=== PATIENT | male | born 1970 | race American Indian/Alaskan Native ===

== ENCOUNTER 2016-11-19 22:23 | Inpatient (IN) | payer OTHER ==
[2016-11-19] MEDS ORDERED: ZOFRAN ONE (22:55)
[2016-11-19] MEDS ORDERED: DILAUDID IV ONE ×2 (22:55→23:49)
[2016-11-19] MEDS ORDERED: ZOFRAN IV ONE (22:55)
[2016-11-19] MEDS ORDERED: ceFAZolin 2 GM in NACL 0.9% 100 ML IV ONE (22:57)
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
[2016-11-19 23:49] LABS: Basophils % (Auto) 0.8 % (0.0-1.8); Eosinophils % (Auto) 1.1 % (0.0-4.3); Hematocrit 42.9 % (35.5-45.6); Hemoglobin 14.1 gm/dl (11.8-15.2); Mean Corpuscular HGB Conc 33 % (32-34); Mean Corpuscular Hemoglobin 29 pg (28-32); Mean Corpuscular Volume 88 fl (84-94); Platelet Count 170 K/mm3 (140-440); Red Blood Count 4.89 M/mm3 (3.65-5.03); White Blood Count 8.6 K/mm3 (4.5-11.0)
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
[2016-11-19 23:58] LABS: INR 0.99 (0.87-1.13)
[2016-11-19 23:59] LABS: Partial Thromboplastin Time 26.4 Sec. (24.2-36.6)
[2016-11-20 00:07] LABS: Alanine Aminotransferase 23 units/L (7-56); Albumin 4.7 g/dL (3.9-5); Albumin/Globulin Ratio 1.6 %; Alkaline Phosphatase 61 units/L (35-129); Anion Gap 23 mmol/L; Blood Urea Nitrogen 14 mg/dL (9-20); Calcium 9.7 mg/dL (8.4-10.2); Carbon Dioxide 22 mmol/L (22-30); Chloride 101.6 mmol/L (98-107); Glucose 108 mg/dL (75-100); Potassium 3.6 mmol/L (3.6-5.0); Sodium 143 mmol/L (137-145); Total Protein 7.7 g/dL (6.3-8.2)
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
[2016-11-20] MEDS ORDERED: DILAUDID IV ONE (02:01)
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
--- NOTE | 2016-11-20 03:26 | Admit Criteria Form ---
Admission Criteria Documentation: MUSCULOSKELETAL DISEASE GRG Clinical Indications for Admission to Inpatient Care (Place 'X' for any and all applicable criteria): Hospital admission is needed for appropriate care of the patient because of 1 or more of the following: [X ]I. Fracture, dislocation, or other musculoskeletal injury requiring inpatient care(medical) as indicated by 1 or more of the following(4)(5)(6)(7) [ ]a) Vertebral fracture requiring observation for instability or neurologic compromise (8) [ ]b) Compartment syndrome (proven or cannot be ruled out during observation level of care) (9) [ ]c) Limb-threatening injury [ ]d) Major injury requiring inpatient stabilization such as traction initiation or external fixation before internal fixation or closure of complex or open fracture [ ]e) Major injury requiring inpatient treatment after emergency or observation level care (as appropriate) [X ]f) Severe pain requiring acute inpatient management [ ]g) Injury with suspicion of abuse or neglect (eg., child, dependent elderly) [ ]II. Newly diagnosed or suspected bone, joint, or orthopedic device infection (e.g., osteomyelitis, septic arthritis) needing 1 or more of the following(1)(2)(3) [ ]a) IV antibiotics that cannot be initiated in other than inpatient setting (e.g., patient too unstable or home infusion not available) [ ]b) Device removal or replacement [ ]c) Bone or soft tissue debridement [ ]d) Joint drainage (drain placement or repetitive aspirations) [ ]III. Severe rheumatologic disease (e.g., systemic lupus erythematosus, rheumatoid arthritis) with complications or comorbidities (Also use Optimal Recovery Care Criteria or General Recovery Criteria as appropriate on the basis of predominant condition), including 1 or more of the following( 10)(11)(12)(13) [ ]a) Severe infection (e.g., [employer] infection, sepsis) (14) [ ]b) Respiratory complications, including 1 or more of the following : [ ]i) Pleural effusion with respiratory compromise [ ]ii) Pulmonary hypertension with congestive failure [ ]iii) Respiratory failure [ ]iv) Pulmonary hemorrhage (15) [ ]c) Hematologic disease, including 1 or more of the following: [ ]i) Coagulopathy with bleeding [ ]ii) Thrombosis with hypercoagulable state [ ]iii) Thrombotic thrombocytopenic purpura [ ]d) Cerebritis with seizures, psychosis, or other severe abnormalities [ ]e) Vertebral destruction with monitoring needed for cervical myelopathy& possible respiratory compromise [ ]f) Exacerbation that requires inpatient treatment (e.g., intravenous immunosuppression) (16) [ ]g) Acute renal failure [ ]h) Cerebritis with seizures, psychosis, Altered mental status, or other neurologic abnormalities [ ]i) Pericardial effusion with tamponade [ ]j) Vertebral destruction, with monitoring needed for cervical myelopathy and possible respiratory compromise [ ]IV. Severe vasculitis with complications or comorbidities (Also use Optimal Recovery Care Criteria General Recovery Criteria as appropriate on the basis of predominant condition), including 1 or more of the following(11)(12)(17)(18)(19)(20) [ ]a) Exacerbation that requires inpatient treatment (e.g., intravenous immunosuppression) (19)(21) [ ]b) Pulmonary hemorrhage (15) [ ]c) [employer] vasculitis with seizures, psychosis, Altered mental status that is severe or persistent, or other severe abnormalities (22) [ ]d) Cerebral infarction [ ]e) Gastrointestinal ischemia [ ]f) Gangrene or threatened amputation [ ]g) Renal failure (16) [ ]h) Other significant complications of vasculitis ( eg., tissue or organ ischemia, organ dysfunction ) [ ]V. Severe myopathy as indicated by 1 or more of the following (28)(29) [ ]a) New onset of airway compromise or inability to swallow [ ]b) Respiratory deterioration with observation needed for impending respiratory failure [ ]c) Exacerbation that requires inpatient treatment (e.g., intravenous immunosuppression) [ ]. Severe crystal gout (arthropathy) indicated by 1 or more of the following (23)(24) [ ]a) Severe pain requiring acute inpatient management [ ]b) Exacerbation that requires inpatient treatment (e.g., intravenous treatment) [ ]VII.Rhabdomyolysis and 1 or more of the following (25)(26)(27) [ ]a) Acute renal failure [ ]b) Need for intravenous hydration after emergency or observation level care (as appropriate) [ ]c) Inability to maintain oral hydration [ ]d) Change in mental status [ ]e) Electrolyte abnormality that remains after emergency or observation level care (as appropriate) [ ]VIII Post amputation complication, as indicated by ANY ONE of the following [ ]a) Infection [ ]b) Dehiscence [ ]c) Myodesis failure [ ]IX. Severe pain requiring acute inpatient management due to musculoskeletal condition [ ]X. Musculoskeletal Disease and ALL of the following: [ ]a) Symptom or finding for which emergency and observation care have failed or are not considered appropriate (Use General Criteria: Observation Care as appropriate) [ ]b) Presence of ANY ONE of the following [ ]i) A General Admission Criteria [ ]ii) A Pediatric General Admission Criteria The original [facility] [employer] content created by [facility] [employer] has been revised. The portions of the content which have been revised are identified through the use of italic text or in bold, and [facility] has neither reviewed nor approved the modified material. All other unmodified content is copyright [facility] [employer]. Please see references footnoted in the original [facility] edition [facility] Admission Criteria Met: Yes
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
[2016-11-20] MEDS ORDERED: ALUM-MAG HYDROX-SIMETH 200-200-20MG/5ML PO PRN (04:41)
[2016-11-20] MEDS ORDERED: DULCOLAX PR PRN (04:41)
[2016-11-20] MEDS ORDERED: PERCOCET 5/325 PO PRN (04:41)
[2016-11-20] MEDS ORDERED: MILK OF MAGNESIA PO PRN (04:41)
[2016-11-20] MEDS ORDERED: XANAX PO PRN (04:41)
[2016-11-20] MEDS ORDERED: D5/0.45NS 1,000 ML IV SCH (05:00)
[2016-11-20] MEDS ORDERED: DILAUDID IV PRN ×2 (05:01→05:04)
[2016-11-20] MEDS ORDERED: DILAUDID ONE ×2 (05:03→05:36)
[2016-11-20] MEDS ORDERED: TRIPLE ANTIBIOTIC TP ONE (05:21)
[2016-11-20] MEDS ORDERED: D5/0.45NS 1,000 ML IV ONE (05:44)
[2016-11-20 05:53] LABS: Urine Drugs of Abuse Note Disclamer
[2016-11-20] MEDS: DILAUDID IV PRN ×4 (05:56→20:21)
--- NOTE | 2016-11-20 13:22 | Consultation ---
History of Present Illness Consult date: 11/20/16 Requesting physician: GEOVANI VANG History of present illness: PULMONARY/CCM CONSULT NOTE (Full dictation # [id number]) Please see dictated notes for full details Past History Past Surgical History: Other (left shoulder surgery, previous right nephrectomy , partial left nephrectomy) Medications and Allergies Allergies Allergy/AdvReac Type Severity Reaction Status Date / Time Gadolinium-Containing Allergy Anaphylaxis Verified 11/20/16 01:36 Contrast Medi Home Medications Medication Instructions Recorded Confirmed Last Taken Type No Known Home Medications [No 11/20/16 11/20/16 Unknown History Reported Home Medications] Active Meds: Active Medications Al Hydrox/Mg Hydrox/Simethicone (Alum-Mag Hydrox-Simeth 536-217-08tg/5ml) 30 ml PO Q4H PRN PRN Reason: Indigestion Alprazolam (Xanax) 0.25 mg PO Q8H PRN PRN Reason: Anxiety Bisacodyl (Dulcolax) 10 mg MD QDAY PRN PRN Reason: constipation unrelieved by MOM Enoxaparin Sodium (Lovenox) 40 mg SUB-Q QDAY@2200 BRADLEY Famotidine (Pepcid) 20 mg PO QDAY BRADLEY Hydromorphone HCl (Dilaudid) 2 mg IV Q3H PRN PRN Reason: Pain , Severe (7-10) Last Admin: 11/20/16 10:57 Dose: 2 mg Dextrose/Sodium Chloride (D5/0.45ns) 1,000 mls @ 75 mls/hr IV DIRECT BRADLEY Magnesium Hydroxide (Milk Of Magnesia) 30 ml PO Q4H PRN PRN Reason: Constipation Oxycodone/Acetaminophen (Percocet 5/325) 1 tab PO Q6H PRN PRN Reason: Pain, Moderate (4-6) Physical Examination Vital signs: Vital Signs Pulse Resp BP Pulse Ox 63 36 H 143/89 99 11/19/16 22:40 11/19/16 22:40 11/19/16 22:40 11/19/16 22:40 Results - Laboratory Findings CBC and BMP: 11/19/16 23:01 11/19/16 23:01 PT/INR, D-dimer PT 13.6 Sec. (12.2-14.9) 11/19/16 23:01 INR 0.99 (0.87-1.13) 11/19/16 23:01
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
--- NOTE | 2016-11-20 15:44 | Event Note ---
Date: 11/20/16 Pt is very stable, will transfer to floor , adv to regular diet, pain control, Ortho contacted twice, consult pending. There is NO open fracture in this patient.
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
[2016-11-20] MEDS: PEPCID PO SCH (16:02)
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
[2016-11-20] MEDS ORDERED: LOVENOX SUB-Q SCH (22:00)
[2016-11-21 06:41] LABS: Basophils % (Auto) 1.1 % (0.0-1.8); Eosinophils % (Auto) 5.3 % (0.0-4.3); Hematocrit 41.8 % (35.5-45.6); Hemoglobin 13.7 gm/dl (11.8-15.2); Mean Corpuscular HGB Conc 33 % (32-34); Mean Corpuscular Hemoglobin 28 pg (28-32); Mean Corpuscular Volume 87 fl (84-94); Platelet Count 124 K/mm3 (140-440); Red Blood Count 4.81 M/mm3 (3.65-5.03); Red Cell Distribution Width 15.8 % (13.2-15.2)
[2016-11-21 06:50] LABS: INR 1.11 (0.87-1.13)
[2016-11-21 06:57] LABS: Alanine Aminotransferase 29 units/L (7-56); Albumin 3.7 g/dL (3.9-5); Albumin/Globulin Ratio 1.2 %; Alkaline Phosphatase 55 units/L (35-129); Anion Gap 16 mmol/L; Blood Urea Nitrogen 8 mg/dL (9-20); Calcium 8.7 mg/dL (8.4-10.2); Carbon Dioxide 25 mmol/L (22-30); Chloride 102.8 mmol/L (98-107); Glucose 87 mg/dL (75-100); Potassium 4.2 mmol/L (3.6-5.0); Sodium 140 mmol/L (137-145); Total Protein 6.7 g/dL (6.3-8.2)
[2016-11-21] MEDS: DILAUDID IV PRN (06:57)
[2016-11-21 08:16] VITALS: BP 118/62
[2016-11-21] MEDS: PEPCID PO SCH (09:47)
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
== END 2016-11-21 12:43 | disposition home or self-care (01) | DRG 563 ==
LOC: ED 22:23 → CC1 11-20 04:41 → 2B-SURG 11-20 17:58
PROVIDERS: ADMIT Surgery; ATTEND Surgery
DX: S42.121A Displaced fracture of acromial process, right shoulder, initial encounter for closed fracture (principal); S22.41XA Multiple fractures of ribs, right side, initial encounter for closed fracture; R00.1 Bradycardia, unspecified; V87.8XXA Person injured in other specified noncollision transport accidents involving motor vehicle (traffic), initial encounter; Y93.89 Activity, other specified; Y92.89 Other specified places as the place of occurrence of the external cause; Y99.8 Other external cause status; Z91.041 Radiographic dye allergy status; Z90.5 Acquired absence of kidney; Z85.528 Personal history of other malignant neoplasm of kidney; Z79.899 Other long term (current) drug therapy; Z82.49 Family history of ischemic heart disease and other diseases of the circulatory system
CPT/HCPCS: 36415; 70450; 71250; 72125; 74176; 80053; 80307; 85025; 85610; 85730; 86850; 86900; 86901; 93005; 93010; A6250; J0690; J1170; J1650; J2405

== ENCOUNTER 2016-12-05 17:42 | Emergency (ER) | payer OTHER ==
[2016-12-05] MEDS ORDERED: ZOFRAN IV ONE (18:54)
[2016-12-05] MEDS ORDERED: DILAUDID IM ONE (18:54)
--- NOTE | 2016-12-05 18:57 | XRay Report ---
FINAL REPORT EXAM: XR KNEE 3V LT HISTORY: left knee pain; fall TECHNIQUE: Left knee three views PRIORS: None. FINDINGS: There is evidence for prior ACL repair with surgical anchors in the distal femur and tibia. There is mild bilateral tibiofemoral joint space narrowing. There is moderate narrowing of patellofemoral joint space. There are multiple calcifications noted along the distribution of the infrapatellar tendon likely reflecting calcific tendinitis. No evidence for joint effusion. No acute fractures are identified. IMPRESSION: Prior ACL repair Findings most consistent with calcific tendinitis of the infrapatellar tendon Degenerative joint space narrowing most prominent at patellofemoral joint
--- NOTE | 2016-12-05 19:08 | XRay Report ---
FINAL REPORT EXAM: XR FOREARM LT HISTORY: left arm pain; fall TECHNIQUE: Left forearm three views PRIORS: None. FINDINGS: There is acute comminuted intra-articular fracture through the distal radius. Multiple displaced fracture fragments are present. Distal ulna is intact. Carpal bones demonstrate normal alignment. No additional acute bony findings. IMPRESSION: Acute intra-articular comminuted distal radial fracture
--- NOTE | 2016-12-05 19:12 | XRay Report ---
FINAL REPORT EXAM: XR HAND 3 LT HISTORY: left hand pain; fall TECHNIQUE: Left hand three views PRIORS: None. FINDINGS: Acute comminuted fracture of the distal radius again identified further described on today's forearm series There is some hypertrophic bony change with few lucencies present and narrowing at the head of the proximal phalanx 4th digit and PIP joint this appears likely related to degenerative change and posttraumatic change chronic posttraumatic change however superimposed acute fracture cannot completely be excluded. Please correlate with clinical findings. No additional acute bony abnormality seen. IMPRESSION: Acute comminuted distal radial fracture further described on today's forearm series. Hypertrophic changes with some bony lucency seen at the head of the proximal phalanx 4th digit. Appears most likely related to remote trauma. Please correlate with physical findings.
[2016-12-05] MEDS ORDERED: DILAUDID IV ONE (19:42)
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
[2016-12-05 21:37] VITALS: BP 146/87
== END 2016-12-05 21:47 | disposition home or self-care (01) ==
LOC: ED 17:42
DX: S52.502A Unspecified fracture of the lower end of left radius, initial encounter for closed fracture (principal); W18.30XA Fall on same level, unspecified, initial encounter; Y93.9 Activity, unspecified; Y92.9 Unspecified place or not applicable; Y99.9 Unspecified external cause status; S80.02XA Contusion of left knee, initial encounter; F17.200 Nicotine dependence, unspecified, uncomplicated
CPT/HCPCS: 29125; 73090; 73130; 73562; 96372; 96374; 96375; 99284; J1170; J2405

== ENCOUNTER 2016-12-09 10:12 | Day surgery (SDC) | payer OTHER ==
[~2016-12-09 10:12] MED LIST: ADRENALIN IR ONE; MARCAINE-EPI/PF 0.5%-1:200,000 INFILTRATI ONE
--- NOTE | 2016-12-09 12:27 | Anesthesia Consultation ---
Anesthesia Consult and Med Hx Date of service: 12/09/16 - Airway Anesthetic Teeth Evaluation: Good ROM Head & Neck: Adequate Mental/Hyoid Distance: Adequate Mallampati Class: Class II Intubation Access Assessment: Probably Good - Pulmonary Exam CTA: Yes - Cardiac Exam Cardiac Exam: RRR - Pre-Operative Health Status ASA Pre-Surgery Classification: ASA3 Proposed Anesthetic Plan: General - Pulmonary Hx Asthma: No COPD: No Hx Pneumonia: No - Central Nervous System Hx Psychiatric Problems: No - Endocrine Hx Renal Disease: Yes (S/P R nephrectomy and partial L nephrectomy for renal cell carcinoma.) Hx End Stage Renal Disease: No - Other Systems Hx Alcohol Use: Yes (occas) Hx Substance Use: Yes (uses "medical marijuana" daily when possible) Hx Cancer: Yes
[2016-12-09] MEDS ORDERED: ZOFRAN IV PRN (12:28)
[2016-12-09] MEDS ORDERED: NORCO 5/325 PO PRN (12:28)
--- NOTE | 2016-12-09 12:28 | Anesthesia Day of Surgery ---
Anesthesia Day of Surgery - Day of Surgery Patient Examined: Yes Patient H&P Reviewed: Yes Patient is NPO: Yes
[2016-12-09] MEDS ORDERED: NACL BACTERIOSTATIC INFILTRATI ONE (12:42)
[2016-12-09] MEDS ORDERED: MARCAINE-EPI/PF 0.5%-1:200,000 INFILTRATI ONE ×3 (12:44→15:10)
[2016-12-09] MEDS ORDERED: DILAUDID ONE ×2 (12:48→15:24)
[2016-12-09] MEDS ORDERED: DIPRIVAN 10 MG/ML IV ONE ×2 (12:49→16:26)
[2016-12-09] MEDS: LACTATED RINGERS 1,000 ML IV SCH ×2 (12:50→14:14)
[2016-12-09] MEDS ORDERED: PEPCID PO NR (13:00)
[2016-12-09] MEDS ORDERED: ANCEF/STERILE WATER 2 GM/20 ML IV NR (13:00)
[2016-12-09] MEDS ORDERED: VERSED IV NR (13:00)
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
[2016-12-09] MEDS ORDERED: DECADRON ONE (13:11)
[2016-12-09] MEDS ORDERED: MARCAINE-EPI 0.25%-1:200,000 INFILTRATI ONE (13:11)
[2016-12-09] MEDS ORDERED: SUBLIMAZE ONE (13:18)
[2016-12-09] MEDS ORDERED: ADRENALIN ONE (14:18)
[2016-12-09] MEDS ORDERED: ZEMURON IV ONE (14:37)
[2016-12-09] MEDS ORDERED: ADRENALIN IR ONE (15:10)
[2016-12-09] MEDS ORDERED: DEPO-MEDROL INTRA-ARTI ONE (15:10)
[2016-12-09] MEDS ORDERED: DEPO-MEDROL ONE ×2 (15:44→15:46)
[2016-12-09] MEDS ORDERED: ZOFRAN ONE (16:24)
[2016-12-09] MEDS ORDERED: ROBINUL ONE (16:24)
[2016-12-09] MEDS ORDERED: NEOSTIGMINE ONE (16:24)
[2016-12-09] MEDS ORDERED: ePHEDrine SULFATE ONE (17:11)
[2016-12-09] MEDS ORDERED: LACTATED RINGERS 1,000 ML ONE (17:15)
--- NOTE | 2016-12-09 18:09 | Post Anesthesia Evaluation ---
- Post Anesthesia Evaluation Patient Participated: Yes Airway Patent: Yes Stable Respiratory Function: Yes Nausea/Vomiting: No Temp > 96.8F: Yes Pain Manageable: Yes Adequeate Hydration: Yes Anesthesia Complications: No Block Receding Appropriately: Yes Patient on Ventilator: No
[2016-12-09] MEDS ORDERED: ROXICODONE PO PRN (19:22)
[2016-12-09] MEDS: DILAUDID IV PRN ×3 (19:42→20:15)
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
[2016-12-09] MEDS ORDERED: NACL 0.9% IR ONE (20:00)
[2016-12-09] MEDS ORDERED: APRESOLINE ONE (20:30)
[2016-12-09] MEDS ORDERED: APRESOLINE IV ONE ×2 (20:34→21:13)
[2016-12-09 22:24] VITALS: BP 190/86
--- NOTE | 2016-12-10 09:27 | XRay Report ---
INTRAOPERATIVE LEFT WRIST RADIOGRAPHS INDICATION: Left radius fracture ORIF. COMPARISON: 12/05/2016. FINDINGS: Intraoperative fluoroscopic guidance provided. Images demonstrate plate and screw repair of acute intra-articular comminuted distal radius fracture. CONCLUSION: Intraoperative fluoroscopic guidance provided, as described. Thank you for the opportunity to participate in this patient's care.
== END 2016-12-09 22:00 | disposition home or self-care (01) ==
LOC: OR 10:12
PROVIDERS: ATTEND Orthopaedic Surgery
DX: S52.502A Unspecified fracture of the lower end of left radius, initial encounter for closed fracture (principal); S46.011A Strain of muscle(s) and tendon(s) of the rotator cuff of right shoulder, initial encounter; F12.90 Cannabis use, unspecified, uncomplicated; Z90.5 Acquired absence of kidney; Z72.89 Other problems related to lifestyle; Z91.041 Radiographic dye allergy status; Z85.528 Personal history of other malignant neoplasm of kidney; V19.9XXA Pedal cyclist (driver) (passenger) injured in unspecified traffic accident, initial encounter; W19.XXXA Unspecified fall, initial encounter; Y93.89 Activity, other specified; Y92.89 Other specified places as the place of occurrence of the external cause; Y99.8 Other external cause status
CPT/HCPCS: 25607; 29826; 29827; 73100; A4217; C1713; J0171; J0360; J0690; J1030; J1100; J1170; J2250; J2405; J2704; J2710; J3010; J7120

== ENCOUNTER 2021-02-18 12:13 | Outpatient (CLI) | payer OTHER ==
--- NOTE | 2021-02-18 15:22 | XRay Report ---
XR shoulder 2+V LT INDICATION / CLINICAL INFORMATION: LEFT SHOULDER PAIN. COMPARISON: None available. FINDINGS/IMPRESSION: * There is depression of the superior lateral humeral head which could be degenerative or related to remote sac deformity. * Decreased acromiohumeral interval consistent with rotator cuff tear. * Well corticated calcification along posterior aspect of the humeral head which is thought to be ch ronic or related to heterotopic ossification Signer Name: Tim Mendez MD Signed: 02/18/2021 3:18 PM Workstation Name: [id number]
== END 2021-02-18 12:14 | disposition home or self-care (01) ==
LOC: XRAY 12:13
PROVIDERS: ATTEND Orthopaedic Surgery
DX: M25.512 Pain in left shoulder (principal)

== ENCOUNTER 2021-06-20 08:03 | Day surgery (SDC) | payer OTHER ==
[~2021-06-20 08:03] MED LIST changes: -ADRENALIN IR ONE; -MARCAINE-EPI/PF 0.5%-1:200,000 INFILTRATI ONE; +SODIUM CHLORIDE 0.9% IRRIG SOLN 2000 ML IR ONE; +ceFAZolin/Water 2 GM/20 ML 2 GM/20 ML SYRINGE IV NR
[2021-06-20] MEDS ORDERED: LACTATED RINGERS 1,000 ML ONE ×2 (08:56→12:26)
[2021-06-20] MEDS ORDERED: ONDANSETRON 4 MG/2 ML INJ IV PRN (09:23)
[2021-06-20] MEDS ORDERED: fentaNYL 100 MCG/2 ML INJ IV SCH (09:23)
[2021-06-20] MEDS ORDERED: HYDROmorphone 1 MG/1 ML INJ IV PRN ×2 (09:23)
--- NOTE | 2021-06-20 09:24 | Anesthesia Day of Surgery ---
Anesthesia Day of Surgery - Day of Surgery Patient Examined: Yes Patient H&P Reviewed: Yes Patient is NPO: Yes
--- NOTE | 2021-06-20 09:26 | Anesthesia Consultation ---
Anesthesia Consult and Med Hx Date of service: 06/20/21 - Airway Anesthetic Teeth Evaluation: Caps, Crowns ROM Head & Neck: Adequate Mental/Hyoid Distance: Adequate Mallampati Class: Class II Intubation Access Assessment: Good - Pre-Operative Health Status ASA Pre-Surgery Classification: ASA2 Proposed Anesthetic Plan: General Nerve Block: IS - Pulmonary Hx Smoking: Yes (SMOKES MARIJUANA DAILY ) Hx Asthma: No COPD: No Hx Pneumonia: No Hx Sleep Apnea: No (ILEANA PRE SCREEN LOW RISK) - Cardiovascular System Hx Hypertension: No Hx Heart Attack/AMI: No Hx Peripheral Vascular Disease: Yes (Had DVT-->has IVC filter) - Central Nervous System Hx Psychiatric Problems: No - Gastrointestinal Hx Gastroesophageal Reflux Disease: No - Endocrine Hx Renal Disease: Yes (CANCER) Hx End Stage Renal Disease: No (Nephrectomy) - Hematic Hx Anemia: No Hx Sickle Cell Disease: No - Other Systems Hx Alcohol Use: Yes (occas) Hx Substance Use: Yes (uses "medical marijuana" daily when possible) Hx Cancer: Yes
[2021-06-20] MEDS ORDERED: dexAMETHasone 4 MG/ML VIAL ONE (09:40)
[2021-06-20] MEDS ORDERED: BUPIVACAINE/PF (0.5%) 5 MG/1 ML 30 ML VIAL INFILTRATI ONE (09:40)
[2021-06-20] MEDS ORDERED: MIDAZOLAM 2 MG/2 ML INJ IV NR ×2 (10:00→10:37)
[2021-06-20] MEDS ORDERED: LACTATED RINGERS 1,000 ML IV SCH (10:30)
[2021-06-20] MEDS ORDERED: ROCURONIUM 50 MG/5 ML INJ IV ONE (10:41)
[2021-06-20] MEDS ORDERED: LIDOCAINE MPF (2%) 20 MG/1 ML VIAL 5 ML ONE (10:41)
[2021-06-20] MEDS ORDERED: propofoL 200 MG/20 ML VIAL IV ONE ×2 (10:42→13:04)
[2021-06-20] MEDS ORDERED: methylPREDNISolone ACETATE 40 MG/1 ML INJ ONE (10:58)
[2021-06-20] MEDS ORDERED: BUPIVACAINE/PF (0.25%) 2.5 MG/ML 30 ML VIAL INFILTRATI ONE (10:58)
[2021-06-20] MEDS ORDERED: EPINEPHrine/PF 1 MG/1 ML INJ ONE (10:59)
[2021-06-20] MEDS ORDERED: fentaNYL 100 MCG/2 ML INJ IV ONE (11:00)
[2021-06-20] MEDS ORDERED: SODIUM CHLORIDE 0.9% IRRIG SOLN 2000 ML IR ONE (12:01)
[2021-06-20] MEDS ORDERED: SODIUM CHLORIDE P/F VIAL 10 ML 10 ML ONE (12:03)
[2021-06-20] MEDS ORDERED: SODIUM CHLORIDE 0.9% 0 ML ONE (12:12)
[2021-06-20] MEDS ORDERED: dexAMETHasone 20 MG/5 ML VIAL ONE (12:26)
[2021-06-20] MEDS ORDERED: ONDANSETRON 4 MG/2 ML INJ ONE (12:26)
[2021-06-20] MEDS ORDERED: SODIUM CHLORIDE 0.9% P/F 10 ML VIAL IV ONE (12:30)
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
[2021-06-20 16:12] VITALS: BP 132/74
--- NOTE | 2021-06-20 19:23 | Post Anesthesia Evaluation ---
- Post Anesthesia Evaluation Patient Participated: Yes Airway Patent: Yes Stable Respiratory Function: Yes Nausea/Vomiting: No Temp > 96.8F: Yes Pain Manageable: Yes Adequeate Hydration: Yes Anesthesia Complications: No Block Receding Appropriately: Not Applicable Patient on Ventilator: No
== END 2021-06-20 15:45 | disposition home or self-care (01) ==
LOC: OR 08:03
PROVIDERS: ATTEND Orthopaedic Surgery
DX: M25.512 Pain in left shoulder (principal); M75.102 Unspecified rotator cuff tear or rupture of left shoulder, not specified as traumatic; G43.909 Migraine, unspecified, not intractable, without status migrainosus; I73.9 Peripheral vascular disease, unspecified; K21.9 Gastro-esophageal reflux disease without esophagitis; Z20.822 Contact with and (suspected) exposure to COVID-19; M79.7 Fibromyalgia; M19.90 Unspecified osteoarthritis, unspecified site; G47.30 Sleep apnea, unspecified; F32.9 Major depressive disorder, single episode, unspecified; F41.9 Anxiety disorder, unspecified; Z91.81 History of falling; Z98.890 Other specified postprocedural states; Z90.5 Acquired absence of kidney; Z86.718 Personal history of other venous thrombosis and embolism; Z85.53 Personal history of malignant neoplasm of renal pelvis; Z79.899 Other long term (current) drug therapy
CPT/HCPCS: 29822; 29826; 64415; C1776; J0171; J0690; J1100; J2250; J2405; J2704; J3010; J3490; J7120; U0003; V2790; J1030